=== PATIENT | male | born 1935 | race Caucasian/White ===

== ENCOUNTER → 2018-12-16 | Outpatient (CLI) | payer OTHER | END | disposition home or self-care (01) | LOC: PCVCCLINIC 13:20 | PROVIDERS: ATTEND Internal Medicine | DX: I25.10 Atherosclerotic heart disease of native coronary artery without angina pectoris (principal); E78.5 Hyperlipidemia, unspecified; J41.0 Simple chronic bronchitis; Z79.82 Long term (current) use of aspirin | CPT/HCPCS: 36415; 80061; 93005; G0463 ==

== ENCOUNTER → 2018-12-19 | Outpatient (CLI) | payer OTHER ==
--- NOTE | 2018-12-19 12:35 | PCVCIMAG ---
APPROVED REPORT Study performed: 12/19/2018 08:21:50 EXAM: Comprehensive 2D, Doppler, and color-flow Echocardiogram Patient Location: Echo lab Room #: 2Status: routine BSA: 2.05 HR: 58 bpmBP: 142/74 mmHg Rhythm: NSR-bradycardia Other Information Study Quality: Good Risk Factors: Cardiac Risk Factors: Dyslipidemia Indications COPD CAD 2D Dimensions IVSd: 9.48 (7-11mm)LVOT Diam: 19.51 (18-24mm) LVDd: 55.85 mm PWd: 7.01 (7-11mm)Ascending Ao: 33.28 (22-36mm) LVDs: 33.23 (25-40mm) Left Atrium: 40.89 (27-40mm) Aortic Root: 22.51 mm LV Single Plane 4CH: 51.05 % LV Single Plane 2CH: 59.90 % Biplane EF: 55.4 % Volumes Left Atrial Volume (Systole) Single Plane 4CH: 53.70 mLSingle Plane 2CH: 59.20 mL Biplane LA Volume: 58.00 mLLA ESV Index: 28.00 mL/m2 Aortic Valve AoV Peak El.: 1.62 m/s AO Peak Gr.: 10.50 mmHgLVOT Max P.84 mmHg LVOT Max V: 0.98 m/s [place] Vmax: 1.81 cm2 AI Vmax: 3.42 m/s AI [place]: 1.59 m/s2 AI PHT: 623.58 ms Mitral Valve E/A Ratio: 0.8 MV Decel. Time: 340.24 ms MV E Max El.: 0.58 m/s MV A El.: 0.71 m/s TDI E/Lateral E': 11.60E/Medial E': 8.29 Medial E' El.: 0.07 m/s Lateral E' El.: 0.05 m/s Pulmonary Valve PV Peak El.: 0.92 m/sPV Peak Gr.: 3.40 mmHg Pulmonary Vein P Vein S: 0.44 m/sP Vein A: 0.27 m/s P Vein D: 0.48 m/sP Vein A Dur.: 100.3 msec P Vein S/D Ratio: 0.92 Tricuspid Valve TR Peak El.: 1.85 m/s TR Peak Gr.: 13.68 mmHg TV Vmax: 0.52 m/sPA Pressure: 21.00 mmHg Left Ventricle The left ventricle is normal size. There is normal LV segmental wall motion. There is normal left ventricular wall thickness. Left ventricular systolic function is normal. The left ventricular ejection fraction is within the normal range. LVEF is 55%. Grade I - abnormal relaxation pattern. Right Ventricle The right ventricle is normal size. The right ventricular systolic function is normal. Atria The left atrium size is normal. Right atrium is mildly dilated. Aortic Valve Aortic valve is trileaflet. The aortic valve is normal in structure and function. Trace to mild aortic regurgitation. There is no aortic valvular stenosis. Mitral Valve The mitral valve is normal in structure. Trace mitral regurgitation. No evidence of mitral valve stenosis. Tricuspid Valve The tricuspid valve is normal in structure. Mild tricuspid regurgitation with a PA pressure of 21 mmHg. No apparent pulmonary hypertension. Pulmonic Valve The pulmonary valve is normal in structure. There is no pulmonic valvular regurgitation. Great Vessels The aortic root is normal in size. The ascending aorta is normal in size. IVC is normal in size and collapses >50% with inspiration. Pericardium There is no pericardial effusion. There is no pleural effusion. <Conclusion> The left ventricle is normal size. LVEF is 55%. Aortic valve is trileaflet. The aortic valve is normal in structure and function. Trace to mild aortic regurgitation. The mitral valve is normal in structure. Trace mitral regurgitation. The tricuspid valve is normal in structure. Mild tricuspid regurgitation with a PA pressure of 21 mmHg. No apparent pulmonary hypertension. The pulmonary valve is normal in structure.
== END | disposition home or self-care (01) ==
LOC: PCVCIMAG 08:06
PROVIDERS: ATTEND Internal Medicine
DX: I08.1 Rheumatic disorders of both mitral and tricuspid valves (principal); I25.10 Atherosclerotic heart disease of native coronary artery without angina pectoris; J44.9 Chronic obstructive pulmonary disease, unspecified
CPT/HCPCS: 93306

== ENCOUNTER → 2019-04-23 | Outpatient (CLI) | payer OTHER | END | disposition home or self-care (01) | LOC: PCVCCLINIC 10:00 | PROVIDERS: ATTEND Internal Medicine | DX: I25.10 Atherosclerotic heart disease of native coronary artery without angina pectoris (principal); E78.5 Hyperlipidemia, unspecified; I10 Essential (primary) hypertension; K21.9 Gastro-esophageal reflux disease without esophagitis; Z79.899 Other long term (current) drug therapy | CPT/HCPCS: G0463 ==